=== PATIENT | male | born 1950 | race African-American/Black ===

== ENCOUNTER 2024-06-10 19:10 | Inpatient (IN) | payer MEDICARE ==
[~2024-06-10] VITALS: Ht 182.9 cm; Wt 170.1 kg
[2024-06-10 18:40] VITALS: BP 123/72; PULSE 61; RESP 18; TEMP 98.2
[2024-06-10 19:00] VITALS: BP 132/86; PULSE 68; RESP 20; TEMP 97.1
[~2024-06-10 19:10] MED LIST: AMLO10TA80 MT; APIX5TAB MT; ASPI-986 PO; EMPA10TA MT; FAMO20TA8 MT; IBUP-2437 PO; MULT-1146 PO
[2024-06-10 20:00] VITALS: BP 132/66; PULSE 68; RESP 20; TEMP 97.1
[2024-06-10] MEDS ORDERED: DEXTROSE 50% WATER 50ML SYRINGE IV PRN (20:15)
[2024-06-10] MEDS ORDERED: GUAIFENESIN 200MG/10ML SUGAR FREE UDC PO PRN (20:15)
[2024-06-10] MEDS ORDERED: CLONIDINE 0.1MG TABLET PO PRN (20:15)
[2024-06-10] MEDS: BLOOD SUGAR DIAGNOSTIC STRIP TEST SCH (21:00)
[2024-06-10] MEDS: METOPROLOL TARTRATE 100MG TABLET PO SCH (21:00)
[2024-06-10] MEDS ORDERED: CEFEPIME 2GM IN DEXT 5% 100ML IV SCH (22:00)
[2024-06-10] MEDS: CEFEPIME 2GM/100ML 100 ML IV SCH (23:17)
[2024-06-10] MEDS: FUROSEMIDE 40MG/4ML VIAL IVP SCH (23:18)
[2024-06-10] MEDS: ASCORBIC ACID 500 MG TABLET PO SCH (23:19)
[2024-06-10] MEDS: ATORVASTATIN CALCIUM 40MG TABLET PO SCH (23:20)
[2024-06-10] MEDS: ENOXAPARIN 150MG/ML SYR SUBCUT SCH (23:23)
[2024-06-10] MEDS: INSULIN LISPRO 100 UNITS/ML SUBCUT SCH (23:34)
[2024-06-11 00:20] VITALS: PULSE 88; RESP 20
[2024-06-11] MEDS: ACETYLCYSTEINE 200MG/ML 20% VIAL 4ML INH SCH (00:23)
[2024-06-11] MEDS: IPRATROPIUM/ALBUTEROL 0.5-3(2.5)MG/3ML NEB HHN PRN (00:23)
[2024-06-11] MEDS: ACETAMINOPHEN 325MG TABLET PO PRN (03:46)
[2024-06-11 05:38] LABS: CHLORIDE 102 mEq/L (98-107); SODIUM 139 mEq/L (136-145)
[2024-06-11 05:41] LABS: CARBON DIOXIDE 26 mEq/L (21-32)
[2024-06-11 05:47] LABS: GLUCOSE 163 mg/dL (70-105); UREA NITROGEN BLOOD 45 mg/dL (9-23)
[2024-06-11 05:48] LABS: ALBUMIN 3.7 g/dL (3.2-4.8)
[2024-06-11 05:49] LABS: ALANINE AMINOTRANSFERASE 24 IU/L (10-49); ASPARTATE AMINOTRANSFERASE 21 IU/L (<34); PHOSPHORUS 4.9 mg/dL (2.5-4.9); PROTEIN TOTAL 6.6 g/dL (6.0-8.3)
[2024-06-11 05:51] LABS: CREATININE 1.9 mg/dL (0.6-1.3)
[2024-06-11 06:51] LABS: BASOPHILS % 1.7 % (0.0-2.0); EOSINOPHILS % 3.7 % (0.0-5.0); HEMATOCRIT. 47.9 % (42.0-52.0); HEMOGLOBIN. 15.8 g/dL (14.0-18.0); LYMPHOCYTES % 11.6 % (20.0-50.0); MEAN CORPUSCULAR HEMOGLOBIN 32.9 pg (28.0-32.0); MEAN CORPUSCULAR HGB CONC 32.9 g/dL (31.0-37.0); MEAN PLATELET VOLUME 10.3 fl (7.4-10.4); MONOCYTES % 8.8 % (2.0-8.0); NEUTROPHILS % 74.2 % (40.0-76.0); PLATELET 232 x1000/uL (130-400); RED BLOOD CELL COUNT 4.79 mill/uL (4.7-6.1); RED CELL DISTRIBUTION WIDTH 14.1 % (11.6-14.6); WHITE BLOOD COUNT 8.3 x1000/uL (4.5-11.0)
[2024-06-11 07:44] VITALS: PULSE 85; RESP 18
[2024-06-11 08:00] VITALS: BP 119/58; PULSE 60; RESP 20; TEMP 97.8
[2024-06-11] MEDS: AZITHROMYCIN 500 MG TABLET PO SCH (08:23)
[2024-06-11] MEDS: ZINC SULFATE 220 MG ( 50 ) CAPSULE PO SCH (08:23)
[2024-06-11] MEDS: LOSARTAN 25 MG TABLET PO SCH (08:24)
[2024-06-11] MEDS: AMIODARONE 200MG TABLET PO SCH (08:24)
[2024-06-11] MEDS: MULTIVITAMINS,THER W-MINERALS TABLET PO SCH (08:24)
[2024-06-11] MEDS ORDERED: NYSTATIN POWDER 15GM TOP SCH (09:00)
[2024-06-11 16:59] VITALS: PULSE 67; RESP 16
[2024-06-11] MEDS: DIGOXIN 125MCG TABLET PO SCH (19:22)
[2024-06-11] MEDS: LIDOCAINE HCL 1% 20ML VIAL INFIL NR (19:24)
[2024-06-11] MEDS: METHYLPREDNISOLONE ACETATE 40MG/ML VIAL IM NR (19:25)
[2024-06-11 20:00] VITALS: BP 90/68; PULSE 98; RESP 20; TEMP 97.3
[2024-06-11] MEDS ORDERED: LIDOCAINE HCL 1% 10 MG/ML 10ML VIAL IJ NR (20:00)
[2024-06-11] MEDS ORDERED: METHYLPREDNISOLONE ACETATE 40MG/ML VIAL IM NR (20:15)
[2024-06-11] MEDS: CEFEPIME 2GM/100ML 100 ML IV SCH (21:18)
[2024-06-11 23:40] VITALS: PULSE 78; RESP 18
[2024-06-12 07:24] LABS: CHLORIDE 103 mEq/L (98-107); SODIUM 139 mEq/L (136-145)
[2024-06-12 07:25] LABS: CALCIUM 8.9 mg/dL (8.7-10.4); CARBON DIOXIDE 24 mEq/L (21-32)
[2024-06-12 07:30] LABS: CREATININE 1.9 mg/dL (0.6-1.3); GLUCOSE 152 mg/dL (70-105); UREA NITROGEN BLOOD 53 mg/dL (9-23); URIC ACID 8.9 mg/dL (3.7-9.2)
[2024-06-12 07:32] LABS: ALANINE AMINOTRANSFERASE 22 IU/L (10-49); ALBUMIN 3.7 g/dL (3.2-4.8); ASPARTATE AMINOTRANSFERASE 20 IU/L (<34); BILIRUBIN DIRECT 0.4 mg/dL (<=3.0); CREATINE KINASE 47 IU/L (46-171); PHOSPHORUS 4.6 mg/dL (2.5-4.9); PROTEIN TOTAL 6.5 g/dL (6.0-8.3)
[2024-06-12 07:33] LABS: BILIRUBIN TOTAL 0.9 mg/dL (0.1-1.0)
[2024-06-12 07:35] LABS: VITAMIN B12 SERUM 677 pg/mL (211-911)
[2024-06-12 07:36] LABS: FOLIC ACID (FOLATE) SERUM 14.47 ng/mL (>5.38)
[2024-06-12 07:39] LABS: BASOPHILS % 0.7 % (0.0-2.0); HEMOGLOBIN. 15.6 g/dL (14.0-18.0); MEAN CORPUSCULAR HEMOGLOBIN 32.5 pg (28.0-32.0); MEAN CORPUSCULAR HGB CONC 32.5 g/dL (31.0-37.0); MEAN CORPUSCULAR VOLUME 99.8 fL (80.0-94.0); MEAN PLATELET VOLUME 10.4 fl (7.4-10.4); MONOCYTES % 9.4 % (2.0-8.0); NEUTROPHILS % 76.9 % (40.0-76.0); PLATELET 255 x1000/uL (130-400); RED BLOOD CELL COUNT 4.81 mill/uL (4.7-6.1); WHITE BLOOD COUNT 8.5 x1000/uL (4.5-11.0)
[2024-06-12 08:00] VITALS: BP 147/68; PULSE 108; RESP 18; TEMP 96.6
[2024-06-12] MEDS: PREDNISONE 10MG TABLET PO SCH (08:38)
[2024-06-12 20:00] VITALS: BP 132/91; PULSE 96; RESP 20; TEMP 98.6
[2024-06-13 08:00] VITALS: BP 115/85; PULSE 88; RESP 18; TEMP 97.5
[2024-06-13 09:12] LABS: COMPLEMENT C3 177 mg/dL (82-167); COMPLEMENT C4 61 mg/dL (12-38)
[2024-06-13 12:00] VITALS: BP 106/86; PULSE 69; RESP 18; TEMP 97.3
[2024-06-13 13:07] LABS: ANTI-DNA DOUBLE STRANDED QUANT < 1 IU/mL (0-9)
[2024-06-13 16:00] VITALS: BP 124/90; PULSE 63; RESP 18; TEMP 98.2
[2024-06-13 18:39] VITALS: PULSE 88; RESP 16
[2024-06-13 20:00] VITALS: BP 107/81; PULSE 89; RESP 16; TEMP 97.3
[2024-06-13] MEDS ORDERED: NALOXONE HCL 0.4MG/ML VIAL IV PRN (20:30)
[2024-06-13] MEDS: QUETIAPINE FUMARATE 25MG TABLET PO SCH (21:06)
[2024-06-14 08:00] VITALS: BP 125/77; PULSE 82; RESP 18; TEMP 98.1
[2024-06-14 09:06] LABS: ANGIOTENSION CONVERTING ENZYME 27 U/L (14-82)
[2024-06-14] MEDS: BUPROPION HCL 150MG TABLET XL 24HR PO SCH (09:40)
[2024-06-14 11:00] VITALS: PULSE 99; RESP 20; O2SAT 95
[2024-06-14 13:07] LABS: ATYPICAL P-ANCA <1:20 titer (Neg:<1:20); CYTOPLASMIC C-ANCA <1:20 titer (Neg:<1:20); PERINUCLEAR P-ANCA <1:20 titer (Neg:<1:20)
[2024-06-14 16:52] VITALS: PULSE 85; RESP 16; O2SAT 95
[2024-06-14 19:09] LABS: ANTI-MYELOPEROXIDASE AB < 0.2 units (0.0-0.9); ANTI-PROTEINASE 3 ABS < 0.2 units (0.0-0.9)
[2024-06-14 20:00] VITALS: BP 130/79; PULSE 86; RESP 18; TEMP 96.9
[2024-06-14] MEDS: QUETIAPINE FUMARATE 25MG TABLET PO SCH (21:00)
[2024-06-14 21:57] VITALS: PULSE 83; RESP 18; O2SAT 98
[2024-06-15 08:00] VITALS: BP 132/98; PULSE 84; RESP 18; TEMP 97.8
[2024-06-15] MEDS: SENNOSIDES/DOCUSATE SOD 8.6/50MG TABLET PO SCH (09:00)
[2024-06-15] MEDS: POLYETHYLENE GLYCOL 3350 (17GM) 1 DOSE PACK PO SCH (09:00)
[2024-06-15 09:09] LABS: ALDOLASE 7.8 U/L (3.3-10.3); ANTI-CARDIOLIPIN AB IGA < 9 APL U/mL (0-11); ANTI-CARDIOLIPIN AB IGG < 9 GPL U/mL (0-14); ANTI-CARDIOLIPIN AB IGM < 9 MPL U/mL (0-12)
[2024-06-15] MEDS: BUPROPION HCL 75MG TABLET PO SCH (10:20)
[2024-06-15] MEDS: HYDROCODONE/ACETAMINOPHEN 5/325MG TABLET PO PRN (10:28)
[2024-06-15 17:06] LABS: ANA IFA Negative (.)
[2024-06-15 20:00] VITALS: BP 120/69; PULSE 65; RESP 20; TEMP 97.1
[2024-06-15] MEDS ORDERED: MAGNESIUM HYDROXIDE 400MG/5ML 30ML UDC PO PRN (21:00)
[2024-06-15 22:51] LABS: CLARITY URINE TURBID (CLEAR); COLOR URINE RED (YELLOW); GLUCOSE URINE NEGATIVE (NEGATIVE); KETONES URINE NEGATIVE (NEGATIVE); LEUKOCYTE ESTERASE URINE 2+ (NEGATIVE); NITRITE URINE NEGATIVE (NEGATIVE); OCCULT BLOOD URINE 1+ (NEGATIVE); PROTEIN URINE 1+ (NEGATIVE); SPECIFIC GRAVITY URINE 1.015 (1.005-1.030); UROBILINOGEN URINE 0.2 E.U./dL (0.2-1.0)
[2024-06-15 23:18] LABS: BACTERIA URINE 3+; RBC URINE TNTC /hpf (0-2); SQUAMOUS EPITHELIAL CELL URINE FEW /lpf (RARE/1+)
[2024-06-16 07:26] LABS: POTASSIUM 4.5 mEq/L (3.5-5.1)
[2024-06-16 07:27] LABS: CALCIUM 8.7 mg/dL (8.7-10.4)
[2024-06-16 08:00] VITALS: BP 107/69; PULSE 88; RESP 20; TEMP 98.6
[2024-06-16 08:04] LABS: CREATININE 3.4 mg/dL (0.6-1.3)
[2024-06-16] MEDS: CEFTRIAXONE 1GM/50ML 50 ML IV SCH (10:00)
[2024-06-16 20:00] VITALS: BP 108/50; PULSE 96; RESP 20; TEMP 97.1
[2024-06-16] MEDS: MINERAL OIL ENEMA 133ML PR PRN (21:55)
[2024-06-17 07:17] LABS: INR 1.2
[2024-06-17 08:00] VITALS: BP 105/68; PULSE 89; RESP 20; TEMP 97.6
[2024-06-17 09:02] VITALS: BP 109/83; PULSE 87; RESP 19; TEMP 97.1
[2024-06-17] MEDS: ACETAMINOPHEN 325MG TABLET PO PRN (16:50)
[2024-06-17 17:01] VITALS: BP 124/76; PULSE 97; RESP 19; TEMP 97.4
[2024-06-17 20:00] VITALS: BP 124/71; PULSE 88; RESP 18; TEMP 96.3
[2024-06-18 08:00] VITALS: BP 133/78; PULSE 66; RESP 23; TEMP 97.2
[2024-06-18 13:00] LABS: CHLORIDE 103 mEq/L (98-107); POTASSIUM 4.6 mEq/L (3.5-5.1)
[2024-06-18 13:01] LABS: CARBON DIOXIDE 20 mEq/L (21-32); SODIUM 135 mEq/L (136-145)
[2024-06-18 13:06] LABS: GLUCOSE 239 mg/dL (70-105)
[2024-06-18 13:07] LABS: CREATININE 4.6 mg/dL (0.6-1.3); UREA NITROGEN BLOOD 126 mg/dL (9-23)
[2024-06-18 13:08] LABS: HEMATOCRIT. 34.4 % (42.0-52.0); HEMOGLOBIN. 11.1 g/dL (14.0-18.0); MEAN CORPUSCULAR HEMOGLOBIN 31.9 pg (28.0-32.0); MEAN CORPUSCULAR HGB CONC 32.2 g/dL (31.0-37.0); MEAN CORPUSCULAR VOLUME 99.1 fL (80.0-94.0); MEAN PLATELET VOLUME 10.6 fl (7.4-10.4); PLATELET 295 x1000/uL (130-400); RED BLOOD CELL COUNT 3.47 mill/uL (4.7-6.1); RED CELL DISTRIBUTION WIDTH 13.8 % (11.6-14.6); WHITE BLOOD COUNT 12.2 x1000/uL (4.5-11.0)
[2024-06-18 13:09] LABS: PHOSPHORUS 7.1 mg/dL (2.5-4.9)
[2024-06-18 13:17] LABS: DIFFERENTIAL COMMENT 1
[2024-06-18 14:29] LABS: PLATELET ESTIMATE NORMAL
[2024-06-18 15:15] VITALS: BP 120/64; PULSE 74
[2024-06-18] MEDS: SODIUM CHLORIDE 0.9% 500 ML IV ONE (17:22)
[2024-06-18 17:49] LABS: CREATINE KINASE 317 IU/L (46-171)
[2024-06-18 20:00] VITALS: BP 101/57; PULSE 87; RESP 20; TEMP 97.4
[2024-06-19] MEDS: METHYLPREDNISOLONE SOD SUCC 125MG/2ML (ACT-O-VIAL) IV SCH (00:27)
[2024-06-19] MEDS ORDERED: SODIUM CHLORIDE 0.9% 500 ML IV NR (00:45)
[2024-06-19 07:20] LABS: CALCIUM 8.4 mg/dL (8.7-10.4); POTASSIUM 5.1 mEq/L (3.5-5.1)
[2024-06-19 07:25] LABS: CREATININE 4.5 mg/dL (0.6-1.3)
[2024-06-19 07:28] LABS: DIGOXIN 2.1 ng/mL (0.8-2.0)
[2024-06-19 07:40] LABS: HEMOGLOBIN 11.6 g/dL (14.0-18.0); MEAN CORPUSCULAR HEMOGLOBIN 32.7 pg (28.0-32.0); MEAN CORPUSCULAR HGB CONC 33.1 g/dL (31.0-37.0); MEAN CORPUSCULAR VOLUME 98.8 fL (80.0-94.0); PLATELET 288 x1000/uL (130-400); RED BLOOD CELL COUNT 3.54 mill/uL (4.7-6.1); RED CELL DISTRIBUTION WIDTH 13.8 % (11.6-14.6); WHITE BLOOD COUNT 12.1 x1000/uL (4.5-11.0)
[2024-06-19 08:00] VITALS: BP 100/65; PULSE 95; RESP 17; TEMP 97.1
[2024-06-19] MEDS: METOPROLOL TARTRATE 100MG TABLET PO SCH (09:00)
[2024-06-19] MEDS: ENOXAPARIN 150MG/ML SYR SUBCUT SCH (10:03)
[2024-06-19 14:00] VITALS: BP 108/64; PULSE 85; RESP 17; TEMP 95.9
[2024-06-19 14:10] VITALS: BP 114/52; PULSE 86; TEMP 98.7; O2SAT 97
[2024-06-22] MEDS ORDERED: METHYLPREDNISOLONE SOD SUCC 125MG/2ML (ACT-O-VIAL) IV SCH (18:00)
[2024-06-26] MEDS ORDERED: METHYLPREDNISOLONE SOD SUCC 125MG/2ML (ACT-O-VIAL) IV SCH
== END 2024-06-19 16:02 | disposition short-term general hospital (02) | DRG 64 ==
PROVIDERS: ADMIT Psychiatry & Neurology Neurology; ATTEND Internal Medicine
PROC: 0S9D3ZZ Drainage of Left Knee Joint, Percutaneous Approach (ICD-10-PCS; principal; 2024-06-11)
PROC: 0S9C3ZZ Drainage of Right Knee Joint, Percutaneous Approach (ICD-10-PCS; 2024-06-11)
DX: I63.9 Cerebral infarction, unspecified (principal); I26.93 Single subsegmental thrombotic pulmonary embolism without acute cor pulmonale; I50.23 Acute on chronic systolic (congestive) heart failure; J96.01 Acute respiratory failure with hypoxia; F84.0 Autistic disorder; R65.10 Systemic inflammatory response syndrome (SIRS) of non-infectious origin without acute organ dysfunction; Z68.41 Body mass index [BMI] 40.0-44.9, adult; M62.82 Rhabdomyolysis; N39.0 Urinary tract infection, site not specified; N17.9 Acute kidney failure, unspecified; F33.1 Major depressive disorder, recurrent, moderate; I69.354 Hemiplegia and hemiparesis following cerebral infarction affecting left non-dominant side; E11.621 Type 2 diabetes mellitus with foot ulcer; M13.862 Other specified arthritis, left knee; M13.861 Other specified arthritis, right knee; I11.0 Hypertensive heart disease with heart failure; M85.80 Other specified disorders of bone density and structure, unspecified site; E87.6 Hypokalemia; M13.872 Other specified arthritis, left ankle and foot; M13.871 Other specified arthritis, right ankle and foot; I25.10 Atherosclerotic heart disease of native coronary artery without angina pectoris; F41.1 Generalized anxiety disorder; M60.88 Other myositis, other site; E66.01 Morbid (severe) obesity due to excess calories; R32 Unspecified urinary incontinence; E11.65 Type 2 diabetes mellitus with hyperglycemia; M13.812 Other specified arthritis, left shoulder; M13.811 Other specified arthritis, right shoulder; D75.89 Other specified diseases of blood and blood-forming organs; R62.7 Adult failure to thrive; M47.816 Spondylosis without myelopathy or radiculopathy, lumbar region; R53.1 Weakness; L97.519 Non-pressure chronic ulcer of other part of right foot with unspecified severity; M79.604 Pain in right leg; M79.605 Pain in left leg; R05.9 Cough, unspecified; Z74.01 Bed confinement status; Z79.01 Long term (current) use of anticoagulants; Z79.82 Long term (current) use of aspirin
CPT/HCPCS: 36415; 72100; 73560; 73610; 73718; 80048; 80053; 80076; 80162; 81003; 82085; 82164; 82550; 82607; 82746; 82962; 83520; 83735; 84100; 84550; 85025; 85027; 86147; 86160; 86225; 86235; 86256; 86332; 86431; 92523; 92610; 94640; 97110; 97112; 97162; 97166; 97530; 97535; A4565; A6261; J0692; J0696; J1030; J1650; J1815; J1940; J2919; J3490; J7512; J7608; A5200